=== PATIENT | male | born 1945 | race Caucasian/White ===

== ENCOUNTER 2016-09-24 09:35 | Emergency (ER) | payer OTHER, MEDICAID ==
[2016-09-24 09:47] VITALS: BP 100/74; PULSE 72; RESP 18; TEMP 97.5; O2SAT 94
[2016-09-24] MEDS ORDERED: TDAP ADULT 0.5 ML INJ (BOOSTRIX) IM ONE (09:58)
[2016-09-24] MEDS ORDERED: LET GEL TOPICAL 1 EA SYR TP ONE (09:58)
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
== END 2016-09-24 10:45 | disposition home or self-care (01) ==
DX: S80.811A Abrasion, right lower leg, initial encounter (principal); Z23 Encounter for immunization; Z87.891 Personal history of nicotine dependence; V18.0XXA Pedal cycle driver injured in noncollision transport accident in nontraffic accident, initial encounter; Y99.8 Other external cause status; Y93.55 Activity, bike riding

== ENCOUNTER → 2016-10-17 | Outpatient (CLI) | payer OTHER, MEDICAID | LOC: FIMAGING 16:24 | PROVIDERS: ATTEND Physician Assistant | DX: M79.604 Pain in right leg (principal) ==

== ENCOUNTER 2016-11-10 18:08 | Emergency (ER) | payer OTHER, MEDICAID ==
[2016-11-10 18:31] VITALS: BP 126/86; PULSE 67; RESP 16; TEMP 97.9; O2SAT 94
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
[2016-11-10] MEDS ORDERED: HYDROCOD/APAP 5/325 PREPACK#6 BTL TAKEHOME ONE (19:59)
== END 2016-11-10 20:20 | disposition home or self-care (01) ==
LOC: EDUNIT#
DX: S83.91XA Sprain of unspecified site of right knee, initial encounter (principal); S20.211A Contusion of right front wall of thorax, initial encounter; Z87.891 Personal history of nicotine dependence; V13.4XXA Pedal cycle driver injured in collision with car, pick-up truck or van in traffic accident, initial encounter; Y92.410 Unspecified street and highway as the place of occurrence of the external cause
CPT/HCPCS: L1830

== ENCOUNTER → 2016-11-27 | Outpatient (CLI) | payer OTHER, MEDICAID | LOC: FIMAGING 09:15 | PROVIDERS: ATTEND Physician Assistant | DX: S83.411A Sprain of medial collateral ligament of right knee, initial encounter (principal); S72.424A Nondisplaced fracture of lateral condyle of right femur, initial encounter for closed fracture; S83.241A Other tear of medial meniscus, current injury, right knee, initial encounter; M23.41 Loose body in knee, right knee ==

== ENCOUNTER → 2016-12-19 | Outpatient (CLI) | payer OTHER, MEDICAID | LOC: BRMIMAGING 14:40 | PROVIDERS: ATTEND Family Medicine | DX: Z13.820 Encounter for screening for osteoporosis (principal); M48.54XA Collapsed vertebra, not elsewhere classified, thoracic region, initial encounter for fracture ==

== ENCOUNTER 2017-04-19 06:25 | Emergency (ER) | payer OTHER, MEDICAID ==
[2017-04-19] MEDS ORDERED: NS 1,000 ML IV ONE (06:34)
[2017-04-19] MEDS ORDERED: HYDROmorphONE/DILAUDID 1 MG/ML INJ IVP ONE ×2 (06:34→06:55)
[2017-04-19] MEDS ORDERED: ONDANSETRON 4 MG/2 ML VIAL IVP ONE ×2 (06:34→06:55)
--- NOTE | 2017-04-19 06:37 | EDPHY ---
H & P Stated Complaint: RUQ abd pain Source: Patient - Personal History Current Tetanus Diphtheria and Acellular Pertussis (TDAP): Yes Tetanus Vaccine Date: 09/2016 - Medical/Surgical History Hx Asthma: No Hx Chronic Respiratory Disease: No Hx Diabetes: No Hx Cardiac Disease: No Hx Renal Disease: No Hx Cirrhosis: No Hx Alcoholism: No Hx HIV/AIDS: No Hx Splenectomy or Spleen Trauma: No Other PMH: epilepsy - Social History Smoking Status: Light smoker HPI/ROS: HPI CHIEF COMPLAINT: Upon the right upper quadrant HISTORY OF PRESENT ILLNESS: This patient is a 71-year-old male, he presents emergency room at upper quadrant pain pre states this woke him from sleep approximately a couple hours ago with associated nausea. Describes sharp stabbing or severe 8/10 right upper quadrant abdominal pain does not radiate anywhere. He denies any pain or short of breath. Denies fever. He states from time to time he had pain in this area but never this severe. Denies diarrhea or vomiting. Denies pleuritic pain. Denies lower abdominal pain the pain is located in the right upper quadrant. Reproducible on exam. Past Medical History: Seizure disorder, GERD Past Surgical History: Denies a history of abdominal surgeries Social History: Denies daily use of drugs, alcohol, smoke occasional. Family History: Noncontributory ROS REVIEW OF SYSTEMS: A comprehensive 10 point review of systems is otherwise negative aside from elements mentioned in the history of present illness. Exam Constitutional appears well nontoxic triage nursing summary reviewed, vital signs reviewed, awake/alert. Eyes normal conjunctivae and sclera, EOMI, PERRLA. HENT normal inspection, atraumatic, moist mucus membranes, no epistaxis, neck supple/ no meningismus, no raccoon eyes. Respiratory clear to auscultation bilaterally, normal breath sounds, no respiratory distress, no wheezing. Cardiovascular rate normal, regular rhythm, no murmur, no edema, distal pulses normal. Gastrointestinal TTP focally in RUQ , no peritoneal signs no rebound, no guarding, normal bowel sounds, no distension, no pulsatile mass. Genitourinary no CVA tenderness. Musculoskeletal no midline vertebral tenderness, full range of motion, no calf swelling, no tenderness of extremities, no meningismus, good pulses, neurovascularly intact. Skin pink, warm, & dry, no rash, skin atraumatic. Neurologic awake, alert and oriented x 3, AAOx3, moves all 4 extremities equally, motor intact, sensory intact, CN II-XII intact, normal cerebellar, normal vision, normal speech. Psychiatric normal mood/affect. Heme/Lymph/Immune no lymphadenopathy. Differential diagnosis includes but is not limited to and in no particular order : Bowel obstruction, appendicitis, gallbladder disease, diverticulitis, colitis , enteritis, perforated viscus, gastritis, GERD, esophagitis, urinary tract infection, pyelonephritis, kidney stones Medical Decision Making: Plan for this in IV establishment IV levels comfort 1 g IV Dilaudid for pain control, IV Zofran for nausea 4 mg, check basic blood work and ultrasound of the right upper quadrant. Re-evaluation: 0636AM: Patient is signed over to Dr. Fco Chou at 7:00 a.m. shift change. Pending blood work ultrasound re-examination. (Sourav Richardson) Constitutional: Initial Vital Signs Temperature (C) 36.9 C 04/19/17 06:25 Heart Rate 71 04/19/17 06:25 Respiratory Rate 19 04/19/17 06:25 Blood Pressure 171/98 H 04/19/17 06:25 O2 Sat (%) 97 04/19/17 06:25 O2 Delivery Mode Room Air Allergies/Adverse Reactions: No Known Allergies Allergy (Unverified 04/19/17 06:24) Home Medications: Medication Instructions Recorded lamoTRIgine [LamICTAL XR] 500 mg PO DAILY 02/12/16 Hydrocodone/APAP 5/325 [[place] 1 each PO Q4-6PRN PRN #10 tab 11/10/16 5/325 (*)] Oxycodone HCl [Oxyir] 5 mg PO Q4-6PRN PRN #12 capsule 04/19/17 Medical Decision Making - Diagnostics Imaging Results: Imaging Impressions Abdomen Ultrasound 04/19/17 06:34 Impression: 1. Cholelithiasis with gallbladder sludge and adherent calculi versus polyps. Borderline gallbladder wall thickening. Findings suggest chronic cholecystitis without acute features. The study was performed as an emergency on-call case and discussed by telephone with Dr. Fco Chou at 7:30 AM hrs. The final interpretation is concordant with the original communication. Abdomen CT 04/19/17 07:56 Impression: 1. Borderline gallbladder wall thickening with nonradiopaque gallstone versus polyp. Correlation recommended with respect to possible underlying cholecystitis. 2. 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 3. Spinal stenosis at L4-L5 and L5-S1. Stable old compression superior endplate of T11. Previous DEXA scan revealed bone mineral density within range of normal. 4. Mild to moderate constipation. Findings discussed with Fco Chou M.D. at 9:10 hour, 04/19/2017. Ultrasound of the right upper quadrant shows gallstones. Normal wall thickness. Common bile duct is normal. No evidence for acute cholecystitis CT abdomen pelvis with IV contrast reviewed by me and discussed with Dr. Fortune shows gallstones only. He has some spinal stenosis. Otherwise pancreas appears normal no other acute intra-abdominal findings (Fco Chou) ED Course/Re-evaluation: I re-evaluated the patient 7:30 a.m.. Patient is much more comfortable. We reviewed the history and that he has had similar symptoms over the last several months gradually increasing. It does seem to be associated with eating and he is thought that this has been GERD but has been suspicious about his gallbladder. The exam shows the patient now to be quite much more comfortable with minimal right-sided abdominal pain. The patient and I discussed labs and the ultrasound. We agreed to do a IV contrast CT for complete evaluation. Re-evaluation again at 9:35 a.m.--patient is stable and pain-free. He and I discussed lab and imaging studies results. We discussed treatment plan including criteria for return importance of follow-up and further evaluation. He expresses understanding and agreement (Fco Chou) Differential Diagnosis: I suspect patient's symptoms are likely due to gallbladder disease. It may be a combination with GERD. Patient will follow up with surgeon (Fco Chou) - Data Points Laboratory Results: Laboratory Results 04/19/17 06:45 04/19/17 06:45 04/19/17 04/19/17 04/19/17 07:30 06:45 06:45 WBC RBC Hgb Hct MCV MCH MCHC RDW Plt Count MPV Neut % (Auto) Lymph % (Auto) [place] % (Auto) Eos % (Auto) Baso % (Auto) Nucleat RBC Rel Count Absolute Neuts (auto) Absolute Lymphs (auto) Absolute Monos (auto) Absolute Eos (auto) Absolute Basos (auto) Absolute Nucleated RBC Immature Gran % Immature Gran # PT 13.3 SEC SEC (12.0-15.0) INR 0.99 (0.83-1.16) APTT 32.1 SEC SEC (23.0-38.0) Sodium 144 mEq/L mEq/L (135-145) Potassium 4.4 mEq/L mEq/L (3.5-5.2) Chloride 106 mEq/L mEq/L (97-110) Carbon Dioxide 24 mEq/l mEq/l (22-31) Anion Gap 14 mEq/L mEq/L (8-16) BUN 24 mg/dL H mg/dL (7-23) Creatinine 1.4 mg/dL H mg/dL (0.7-1.3) Estimated GFR 50 Glucose 112 mg/dL H mg/dL (70-100) Calcium 9.4 mg/dL mg/dL (8.5-10.4) Total Bilirubin 0.2 mg/dL mg/dL (0.1-1.4) Conjugated Bilirubin 0.2 mg/dL mg/dL (0.0-0.5) Unconjugated Bilirubin 0.0 mg/dL mg/dL (0.0-1.1) AST 17 IU/L IU/L (17-59) ALT 28 IU/L IU/L (21-72) Alkaline Phosphatase 63 IU/L IU/L (38-126) Troponin I < 0.012 ng/mL ng/mL (0.000-0.034) Total Protein 6.8 g/dL g/dL (6.3-8.2) Albumin 4.2 g/dL g/dL (3.5-5.0) Lipase 231 IU/L IU/L (23-300) Urine Color YELLOW Urine Appearance CLEAR Urine pH 5.0 (5.0-7.5) Ur Specific [place] 1.020 (1.002-1.030) Urine Protein NEGATIVE (NEGATIVE) Urine Ketones NEGATIVE (NEGATIVE) Urine Blood 1+ H (NEGATIVE) Urine Nitrate NEGATIVE (NEGATIVE) Urine Bilirubin NEGATIVE (NEGATIVE) Urine Urobilinogen NEGATIVE EU EU (0.2-1.0) Ur Leukocyte Esterase NEGATIVE (NEGATIVE) Urine RBC 3-5 /hpf H /hpf (0-3) Urine WBC 1-3 /hpf /hpf (0-3) Ur Epithelial Cells TRACE /lpf /lpf (NONE-1+) Hyaline Casts 1-5 /lpf /lpf (0-1) Urine Mucus TRACE /lpf /lpf (NONE-1+) Urine Glucose NEGATIVE (NEGATIVE) 04/19/17 06:45 WBC 9.82 10^3/uL H 10^3/uL (3.80-9.50) RBC 4.75 10^6/uL 10^6/uL (4.40-6.38) Hgb 16.0 g/dL g/dL (13.7-17.5) Hct 46.4 % % (40.0-51.0) MCV 97.7 fL fL (81.5-99.8) MCH 33.7 pg pg (27.9-34.1) MCHC 34.5 g/dL g/dL (32.4-36.7) RDW 12.9 % % (11.5-15.2) Plt Count 223 10^3/uL 10^3/uL (150-400) MPV 9.8 fL fL (8.7-11.7) Neut % (Auto) 61.1 % % (39.3-74.2) Lymph % (Auto) 23.6 % % (15.0-45.0) Butler % (Auto) 12.6 % % (4.5-13.0) Eos % (Auto) 2.0 % % (0.6-7.6) Baso % (Auto) 0.4 % % (0.3-1.7) Nucleat RBC Rel Count 0.0 % % (0.0-0.2) Absolute Neuts (auto) 5.99 10^3/uL 10^3/uL (1.70-6.50) Absolute Lymphs (auto) 2.32 10^3/uL 10^3/uL (1.00-3.00) Absolute Monos (auto) 1.24 10^3/uL H 10^3/uL (0.30-0.80) Absolute Eos (auto) 0.20 10^3/uL 10^3/uL (0.03-0.40) Absolute Basos (auto) 0.04 10^3/uL 10^3/uL (0.02-0.10) Absolute Nucleated RBC 0.00 10^3/uL 10^3/uL (0-0.01) Immature Gran % 0.3 % % (0.0-1.1) Immature Gran # 0.03 10^3/uL 10^3/uL (0.00-0.10) PT INR APTT Sodium Potassium Chloride Carbon Dioxide Anion Gap BUN Creatinine Estimated GFR Glucose Calcium Total Bilirubin Conjugated Bilirubin Unconjugated Bilirubin AST ALT Alkaline Phosphatase Troponin I Total Protein Albumin Lipase Urine Color Urine Appearance Urine pH Ur Specific [place] Urine Protein Urine Ketones Urine Blood Urine Nitrate Urine Bilirubin Urine Urobilinogen Ur Leukocyte Esterase Urine RBC Urine WBC Ur Epithelial Cells Hyaline Casts Urine Mucus Urine Glucose Medications Given: Discontinued Medications Hydromorphone HCl (Dilaudid) 0.5 mg IVP EDNOW ONE Stop: 04/19/17 06:35 Last Admin: 04/19/17 06:50 Dose: 0.5 mg Sodium Chloride (Ns) 1,000 mls @ 0 mls/hr IV EDNOW ONE; Wide Open PRN Reason: Protocol Stop: 04/19/17 06:35 Last Admin: 04/19/17 06:50 Dose: 1,000 mls Ondansetron HCl (Zofran) 4 mg IVP EDNOW ONE Stop: 04/19/17 06:35 Last Admin: 04/19/17 06:50 Dose: 4 mg Departure - Departure Disposition: Home, Routine, Self-Care Clinical Impression: Abdominal pain Qualifiers: Abdominal location: right upper quadrant Qualified Code(s): R10.11 - Right upper quadrant pain Cholelithiasis Qualifiers: Cholelithiasis location: gallbladder Cholecystitis presence: without cholecystitis Biliary obstruction: without biliary obstruction Qualified Code(s) : K80.20 - Calculus of gallbladder without cholecystitis without obstruction Condition: Good Instructions: Gallstones (ED) Additional Instructions: Caution with eating fat or greasy foods. Oxycodone if needed for discomfort. Return for worsening symptoms. I will give you the name of surgeon in town for further evaluation of your gallbladder. Please call and make an appointment. Referrals: Patient,NotPresent [Unknown] - As per Instructions Sourav Amaya MD [Medical Doctor] - 2-3 days, call for appt. Prescriptions: Oxycodone HCl [Oxyir] 5 mg PO Q4-6PRN PRN #12 capsule PRN Reason: Pain, Moderate
[2017-04-19 06:54] VITALS: RESP 18
[2017-04-19 06:57] LABS: PLATELET COUNT 223 10^3/uL (150-400)
[2017-04-19 07:06] LABS: INR 0.99 (0.83-1.16); PROTIME(PATIENT) 13.3 SEC (12.0-15.0)
[2017-04-19] MEDS ORDERED: IOPAMIDOL (ISOVUE-300) 100 ML BTL ONE (08:12)
[2017-04-19 09:55] VITALS: BP 140/82; PULSE 58; TEMP 97.5; O2SAT 91
== END 2017-04-19 09:55 | disposition home or self-care (01) ==
LOC: EDUNIT#
DX: K80.20 Calculus of gallbladder without cholecystitis without obstruction (principal); F17.200 Nicotine dependence, unspecified, uncomplicated; E86.9 Volume depletion, unspecified
CPT/HCPCS: 74177; 76705; 96361; 96374; 96375; 99285; J1170; J2405; Q9967

== ENCOUNTER 2017-04-28 13:23 | Emergency (ER) | payer OTHER, MEDICAID ==
[2017-04-28 13:29] VITALS: RESP 17
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
[2017-04-28 15:40] VITALS: BP 129/76; PULSE 56; TEMP 98.1; O2SAT 94
== END 2017-04-28 15:40 | disposition home or self-care (01) ==
DX: M25.561 Pain in right knee (principal); F17.200 Nicotine dependence, unspecified, uncomplicated
CPT/HCPCS: 99283; L1830

== ENCOUNTER → 2017-07-18 | Outpatient (CLI) | payer OTHER, MEDICAID | LOC: BHFA 11:30 | PROVIDERS: ATTEND Internal Medicine Cardiovascular Disease | DX: R07.9 Chest pain, unspecified (principal) ==

== ENCOUNTER → 2017-08-03 | Outpatient (CLI) | payer OTHER, MEDICAID | LOC: BHFA 10:45 | PROVIDERS: ATTEND Internal Medicine Cardiovascular Disease | DX: R09.89 Other specified symptoms and signs involving the circulatory and respiratory systems (principal) ==

== ENCOUNTER → 2017-09-18 | Outpatient (CLI) | payer OTHER, MEDICAID | LOC: FIMAGING 16:09 | PROVIDERS: ATTEND Family Medicine | DX: Z13.6 Encounter for screening for cardiovascular disorders (principal); I70.0 Atherosclerosis of aorta; I70.8 Atherosclerosis of other arteries ==

== ENCOUNTER → 2017-09-24 | Outpatient (CLI) | payer OTHER, MEDICAID | LOC: FIMAGING 10:15 | PROVIDERS: ATTEND Physician Assistant | DX: S83.281A Other tear of lateral meniscus, current injury, right knee, initial encounter (principal); M23.41 Loose body in knee, right knee; S83.421A Sprain of lateral collateral ligament of right knee, initial encounter; S83.241A Other tear of medial meniscus, current injury, right knee, initial encounter ==

== ENCOUNTER 2017-09-27 09:11 | Emergency (ER) | payer OTHER, MEDICAID ==
[2017-09-27] MEDS ORDERED: NS 1,000 ML IV ONE (09:46)
[2017-09-27] MEDS ORDERED: ONDANSETRON 4 MG/2 ML VIAL IVP ONE (09:46)
[2017-09-27] MEDS ORDERED: fentaNYL 100 MCG/2 ML INJ IVP ONE (09:46)
--- NOTE | 2017-09-27 09:46 | EDPHY ---
H & P Stated Complaint: r abd pain post pizza/trying to schedule choly surgery Time Seen by Provider: 09/27/17 09:27 HPI/ROS: CHIEF COMPLAINT: Right upper quadrant pain and vomiting HISTORY OF PRESENT ILLNESS: The patient presents to the ED with right upper quadrant pain and vomiting. The patient reports he has a history of cholelithiasis. The patient denies fever. The patient was diagnosed with cholelithiasis in the emergency department several months ago. The patient did have a outpatient follow-up visit however has not yet had surgery. The patient denies any vomiting or diarrhea. The patient denies prior history of abdominal surgery. The patient does report a past medical history noteworthy for epilepsy. The patient has recently undergone a cardiac evaluation with a Holter monitor and carotid ultrasound. REVIEW OF SYSTEMS: A comprehensive 10 point review of systems is otherwise negative aside from elements mentioned in the history of present illness. Source: Patient Exam Limitations: No limitations - Personal History Current Tetanus Diphtheria and Acellular Pertussis (TDAP): Yes Tetanus Vaccine Date: 09/2016 - Medical/Surgical History Hx Asthma: No Hx Chronic Respiratory Disease: No Hx Diabetes: No Hx Cardiac Disease: No Hx Renal Disease: No Hx Cirrhosis: No Hx Alcoholism: No Hx HIV/AIDS: No Hx Splenectomy or Spleen Trauma: No Other PMH: epilepsy gall bladder issues - Social History Smoking Status: Former smoker - Physical Exam Exam: General Appearance: Thin male, no acute distress Eyes: Pupils equal and round no pallor or injection ENT, Mouth: Mucous membranes moist Respiratory: There are no retractions, lungs are clear to auscultation Cardiovascular: Regular rate and rhythm Gastrointestinal: Tenderness to palpation in the right upper quadrant, no peritoneal signs, normal bowel sounds Neurological: 5/5 strength all 4 extremities Skin: Warm and dry, no rashes Musculoskeletal: Neck is supple nontender Extremities: symmetrical, full range of motion Constitutional: Initial Vital Signs Temperature (C) 36.3 C 09/27/17 09:16 Heart Rate 51 L 09/27/17 09:16 Respiratory Rate 16 09/27/17 09:16 Blood Pressure 133/83 H 09/27/17 09:16 O2 Sat (%) 95 09/27/17 09:16 O2 Delivery Mode Room Air O2 (L/minute) 2 Allergies/Adverse Reactions: No Known Allergies Allergy (Verified 09/27/17 09:15) Home Medications: Medication Instructions Recorded lamoTRIgine [LamICTAL XR] 500 mg PO DAILY 02/12/16 oxyCODONE/APAP 5/325 [Percocet] 1 tab PO Q8 PRN #11 tab 04/28/17 Ondansetron Odt [Zofran Odt] 4 mg PO Q4PRN PRN #20 tab 09/27/17 Medical Decision Making ED Course/Re-evaluation: I reviewed the patient's past medical records. He does have chronic cholecystitis noted on ultrasound performed several months ago. Patient's laboratory studies are within normal limits. I re-evaluated the patient at 11: 00 a.m. and he is now pain free. The patient would prefer to be discharged home and follow up with Dr. Amaya his regular general surgeon. The patient will be discharged from the emergency department with customary aftercare instructions and return precautions. Differential Diagnosis: Differential diagnosis considered includes cholecystitis, cholelithiasis, pancreatitis, cholangitis - Data Points Laboratory Results: Laboratory Results 09/27/17 09:50 09/27/17 09:50 09/27/17 09/27/17 09:50 09:50 WBC 8.37 10^3/uL 10^3/uL (3.80-9.50) RBC 4.26 10^6/uL L 10^6/uL (4.40-6.38) Hgb 14.1 g/dL g/dL (13.7-17.5) Hct 41.7 % % (40.0-51.0) MCV 97.9 fL fL (81.5-99.8) MCH 33.1 pg pg (27.9-34.1) MCHC 33.8 g/dL g/dL (32.4-36.7) RDW 13.2 % % (11.5-15.2) Plt Count 206 10^3/uL 10^3/uL (150-400) MPV 10.0 fL fL (8.7-11.7) Neut % (Auto) 77.0 % H % (39.3-74.2) Lymph % (Auto) 13.5 % L % (15.0-45.0) [place] % (Auto) 7.8 % % (4.5-13.0) Eos % (Auto) 0.7 % % (0.6-7.6) Baso % (Auto) 0.4 % % (0.3-1.7) Nucleat RBC Rel Count 0.0 % % (0.0-0.2) Absolute Neuts (auto) 6.45 10^3/uL 10^3/uL (1.70-6.50) Absolute Lymphs (auto) 1.13 10^3/uL 10^3/uL (1.00-3.00) Absolute Monos (auto) 0.65 10^3/uL 10^3/uL (0.30-0.80) Absolute Eos (auto) 0.06 10^3/uL 10^3/uL (0.03-0.40) Absolute Basos (auto) 0.03 10^3/uL 10^3/uL (0.02-0.10) Absolute Nucleated RBC 0.00 10^3/uL 10^3/uL (0-0.01) Immature Gran % 0.6 % % (0.0-1.1) Immature Gran # 0.05 10^3/uL 10^3/uL (0.00-0.10) Sodium 145 mEq/L mEq/L (135-145) Potassium 4.1 mEq/L mEq/L (3.3-5.0) Chloride 106 mEq/L mEq/L (97-110) Carbon Dioxide 28 mEq/l mEq/l (22-31) Anion Gap 11 mEq/L mEq/L (8-16) BUN 23 mg/dL mg/dL (7-23) Creatinine 1.2 mg/dL mg/dL (0.7-1.3) Estimated GFR 60 Glucose 114 mg/dL H mg/dL (70-100) Calcium 9.3 mg/dL mg/dL (8.5-10.4) Total Bilirubin 0.4 mg/dL mg/dL (0.1-1.4) Conjugated Bilirubin 0.4 mg/dL mg/dL (0.0-0.5) Unconjugated Bilirubin 0.0 mg/dL mg/dL (0.0-1.1) AST 26 IU/L IU/L (17-59) ALT 37 IU/L IU/L (21-72) Alkaline Phosphatase 59 IU/L IU/L (38-126) Total Protein 6.7 g/dL g/dL (6.3-8.2) Albumin 4.0 g/dL g/dL (3.5-5.0) Lipase 156 IU/L IU/L (23-300) Medications Given: Discontinued Medications Fentanyl (Sublimaze) 100 mcg IVP EDNOW ONE Stop: 09/27/17 09:47 Last Admin: 09/27/17 10:06 Dose: 100 mcg Sodium Chloride (Ns) 1,000 mls @ 0 mls/hr IV EDNOW ONE; Wide Open PRN Reason: Protocol Stop: 09/27/17 09:47 Last Admin: 09/27/17 10:06 Dose: 1,000 mls Ondansetron HCl (Zofran) 4 mg IVP EDNOW ONE Stop: 09/27/17 09:47 Last Admin: 09/27/17 10:07 Dose: 4 mg Departure - Departure Disposition: Home, Routine, Self-Care Clinical Impression: Cholelithiasis Condition: Good Instructions: Gallstones (ED) Additional Instructions: 1. Please follow up with Dr. Amaya as scheduled. 2. Zofran as needed for nausea. 3. Return to the ED for severe pain, intractable vomiting or fever. This may be the sign of a more serious conditions such as a gallbladder infection. Referrals: Kimberley Simmons MD [Primary Care Provider] - As per Instructions Sourav Amaya MD [Medical Doctor] - As per Instructions
[2017-09-27 10:03] LABS: PLATELET COUNT 206 10^3/uL (150-400)
[2017-09-27 11:12] VITALS: BP 120/80
== END 2017-09-27 11:20 | disposition home or self-care (01) ==
DX: K80.20 Calculus of gallbladder without cholecystitis without obstruction (principal); E86.9 Volume depletion, unspecified; Z87.891 Personal history of nicotine dependence
CPT/HCPCS: 96361; 96374; 96375; 99284; J2405; J3010

== ENCOUNTER 2017-10-06 12:18 | Emergency (ER) | payer OTHER, MEDICAID ==
[2017-10-06 12:32] VITALS: BP 106/73
--- NOTE | 2017-10-06 12:32 | CPEKG ---
Heart Rate: 75 RR Interval: 800 P-R Interval: 192 QRSD Interval: 98 QT Interval: 388 QTC Interval: 434 P Diablo: 50 QRS Diablo: 47 T Wave Diablo: 49 EKG Severity - NORMAL ECG - EKG Impression: SINUS RHYTHM Electronically Signed By: Carmen Iniguez 07-Oct-2017 14:07:33
[2017-10-06] MEDS ORDERED: NS 1,000 ML IV ONE (12:51)
--- NOTE | 2017-10-06 12:52 | EDPHY ---
HPI/HX/ROS/PE/MDM Narrative: CHIEF COMPLAINT: Seizure HISTORY OF PRESENT ILLNESS: The patient is a 71 y/o male with a history of seizure presenting post-seizure. He take Lamictal for seizure and reports taking his most recent dose slightly late. In addition, he had alcohol last night and this morning, which he does not usually do. He reports the seizure was similar to all previous seizures. He denies headache, injury, fever, or any other associated symptoms. No fever, chills, chest pain, shortness of breath, palpitations, vomiting, diarrhea, urinary complaints, headache, lightheadedness. REVIEW OF SYSTEMS: Aside from elements discussed in the HPI, a comprehensive 10-point review of systems was reviewed and is negative. PAST MEDICAL HISTORY: Seizures, gallbladder attack SOCIAL HISTORY: Has home health care 3 times a week, lives in [place], infrequent alcohol use VITAL SIGNS: Reviewed by me GENERAL: Well-developed, well-nourished, resting comfortably in no respiratory distress. HEENT: Atraumatic. Eyes: No icterus, no injection. Mouth: moist mucous membranes. No erythema or lesions. Neck: supple with no adenopathy. Nose: some superficial scratches. LUNGS: Clear to auscultation bilaterally, no wheezes, rhonchi or rales. CARDIAC: Regular rate and rhythm, no rubs, murmurs or gallops. ABDOMEN: Soft, nontender, nondistended, bowel sounds normal. BACK: No CVA tenderness. EXTREMITIES: No trauma. No edema. Range of motion is normal throughout. NEURO: Alert and oriented, motor strength 5/5 in all major muscle groups. Sensation intact to light touch. Conversant, oriented x3. SKIN: Warm and dry, no rash. PSYCHIATRIC: Normal mentation, no agitation. ED Course: The patient presents post-seizure. He has a known seizure disorder. He reports taking his Lamictal late this morning and consuming a beer over last night and this morning. Plan for basic labs including alcohol level, EKG, and fluids. The patient has decided to leave against medical advice. Patient understands that his evaluation is not fully complete. He understands that he runs the risk of having recurrent seizure. He reports that he would like to leave. He does have medical decision-making capacity. AMA form was signed. MDM: Differential diagnosis of the patient's seizure was considered including but not limited to electrolyte abnormality, alcohol withdrawal, medication noncompliance, head injury, meningitis, encephalitis, and breakthrough seizure. - Data Points Laboratory Results: Laboratory Results 10/06/17 12:30 10/06/17 12:30 General Time Seen by Provider: 10/06/17 12:41 Initial Vital Signs: Initial Vital Signs Temperature (C) 36.6 C 10/06/17 12:18 Heart Rate 82 10/06/17 12:18 Respiratory Rate 18 10/06/17 12:18 Blood Pressure 106/73 10/06/17 12:18 O2 Sat (%) 91 L 10/06/17 12:18 O2 Delivery Mode Room Air Allergies/Adverse Reactions: No Known Allergies Allergy (Verified 10/06/17 12:29) Home Medications: Medication Instructions Recorded lamoTRIgine [LamICTAL XR] 500 mg PO DAILY 02/12/16 Departure - Departure Disposition: Against Medical Advice Clinical Impression: Seizure Condition: Fair Instructions: Recurrent Seizures in Adults (ED) Additional Instructions: 1. You are leaving against medical advice. 2. Please continue your lamictal as directed. 3. Please return if you would like care. Referrals: Patient,NotPresent [Unknown] - As per Instructions Kimberley Simmons MD [Primary Care Provider] - As per Instructions Report Scribed for: Carmen Iniguez Report Scribed by: Loraine Maynard Date of Report: 10/06/17 Time of Report: 15:49 Physician Review and Approval Statement: Portions of this note were transcribed by a medical geneticist. I personally performed a history, physical exam, medical decision making, and confirmed accuracy of information the transcribed note.
[2017-10-06 13:01] LABS: PLATELET COUNT 237 10^3/uL (150-400)
== END 2017-10-06 13:15 | disposition left against medical advice (07) ==
LOC: EDUNIT#
DX: G40.909 Epilepsy, unspecified, not intractable, without status epilepticus (principal)
CPT/HCPCS: G0480

== ENCOUNTER 2017-11-22 10:38 | Emergency (ER) | payer OTHER, MEDICAID ==
--- NOTE | 2017-11-22 11:11 | EDPHY ---
H & P Stated Complaint: GALLBLADDER ISSUES Time Seen by Provider: 11/22/17 11:11 - Personal History Current Tetanus Diphtheria and Acellular Pertussis (TDAP): Yes Tetanus Vaccine Date: 09/2016 - Medical/Surgical History Hx Asthma: No Hx Chronic Respiratory Disease: No Hx Diabetes: No Hx Cardiac Disease: No Hx Renal Disease: No Hx Cirrhosis: No Hx Alcoholism: No Hx HIV/AIDS: No Hx Splenectomy or Spleen Trauma: No Other PMH: epilepsy gall bladder issues - Social History Smoking Status: Former smoker Constitutional: Initial Vital Signs Temperature (C) 36.6 C 11/22/17 10:42 Heart Rate 62 11/22/17 10:42 Respiratory Rate 18 11/22/17 10:42 Blood Pressure 122/79 H 11/22/17 10:42 O2 Sat (%) 95 11/22/17 10:42 O2 Delivery Mode Room Air Allergies/Adverse Reactions: No Known Allergies Allergy (Verified 11/22/17 10:41) Home Medications: Medication Instructions Recorded lamoTRIgine [LamICTAL XR] 500 mg PO DAILY 02/12/16 Hydrocodone-Acetamin 5-300 mg 11/22/17 Medical Decision Making - Diagnostics Imaging Results: Imaging Impressions Abdomen Ultrasound 11/22/17 11:21 Impression: 1. Gallbladder mass measuring 3.1 x 2.5 x 1.2 cm suspicious for gallbladder carcinoma, versus much less likely adherent tumefactive sludge. Recommend surgery consult. 2. No cholelithiasis or biliary ductal dilation. 3. Pancreas obscured by bowel gas. Findings and recommendations discussed with Emergency Department physician, Ismael Mitchell MD, at 1224 hour, 11/22/2017. Final report concurs with initial preliminary interpretation. Imaging: Discussed imaging studies w/ fisher scallop Radiologist, I viewed and interpreted images myself ED Course/Re-evaluation: CHIEF COMPLAINT: Right upper abdomen pain HISTORY OF PRESENT ILLNESS: The patient is a 72 y/o male with a history of gallstones complaining of right upper abdominal pain. In June, he was scheduled to have a cholecystectomy, but was unable to properly schedule the surgery properly with Dr. Amaya, general surgery. This morning he had acute abdominal pain, which is abnormal as he normally has right abdominal pain after eating. Denies chest pain, shortness of breath, urinary or bowel complaints, numbness, paresthesias, fever. REVIEW OF SYSTEMS: A 10 point review of systems was performed and is negative with the exception of the elements mentioned in the history of present illness. PHYSICAL EXAM: HR, BP, O2 Sat, RR. Temp noted General Appearance: Alert, well hydrated, appropriate, and non-toxic appearing. Head: Atraumatic without scalp tenderness or obvious injury Eyes: Pupils equal, round, reactive to light and accommodation, EOMI, no trauma , no injection. Ears: Clear bilaterally, no perforation, normal landmarks Nose: Atraumatic, no rhinorrhea, clear. Throat: There is no erythema or exudates, no lesions, normal tonsils, mucus membranes moist. Neck: Supple, 2+ carotid upstroke, nontender, no lymphadenopathy. Respiratory: No retractions, no distress, no wheezes, and no accessory muscle use. Lungs are clear to auscultation bilaterally. Cardiovascular: Regular rate and rhythm, no murmurs, rubs, or gallops. Bilateral carotid, radial, dorsalis pedis, and posterior tibial pulses intact. Good capillary refill all extremities. Gastrointestinal: Right upper quadrant tenderness to palpation. Abdomen is soft , non-distended, no masses, no rebound, no guarding, no peritoneal signs. Musculoskeletal: Normal active ROM of all extremities, atraumatic. Neurological: Alert, appropriate, and interactive. The patient has normal DTRs and non-focal cranial nerves, motor, sensory, and cerebellar exam. Skin: No rashes, good turgor, no nodules on palpation. Past medical history: Epilepsy, gallstones Past surgical history: Denies Family history: Denies Social history: Lives in [place], single, retired DIAGNOSTICS/PROCEDURES/CRITICAL CARE TIME: Abdominal US: Gallbladder mass, no gallstones. DIFFERENTIAL DIAGNOSIS: The differential diagnosis for the patient's abdominal pain included but was not limited to gallbladder mass, appendicitis, cholecystitis, hernias, testicular torsion, gastritis, and urinary tract infection. MEDICAL DECISION MAKING: The patient is a 72 y/o male with a history of gallstones presenting with right upper abdominal pain. On exam he has mild right upper quadrant tenderness to palpation. Labs and abdominal US ordered; 1L IV NS and 0.5mg IV Dilaudid administered. 1120: I spoke with case management regarding this patient. 1222: I spoke with Dr. Waldrop, radiologist, regarding patient's abdominal US. There is a gallbladder mass and no gallstones. The patient has no lab abnormalities and will need to follow up as an outpatient with general surgery. 1307: I consulted with Dr. Amaya, general surgeon, regarding this patient. Dr. Archibald, general surgeon, will follow up with this patient in his office. 1309: Reassessed patient and discussed imaging findings. I have advised him to follow up as an outpatient with Dr. Archibald. He is requesting the name of 3 extra general surgeons. Return precautions provided; patient is comfortable with this plan. - Data Points Laboratory Results: Laboratory Results 11/22/17 11:39 11/22/17 11:39 11/22/17 11/22/17 11:39 11:39 WBC 7.64 10^3/uL 10^3/uL (3.80-9.50) RBC 4.41 10^6/uL 10^6/uL (4.40-6.38) Hgb 14.6 g/dL g/dL (13.7-17.5) Hct 43.0 % % (40.0-51.0) MCV 97.5 fL fL (81.5-99.8) MCH 33.1 pg pg (27.9-34.1) MCHC 34.0 g/dL g/dL (32.4-36.7) RDW 13.0 % % (11.5-15.2) Plt Count 215 10^3/uL 10^3/uL (150-400) MPV 9.9 fL fL (8.7-11.7) Neut % (Auto) 59.2 % % (39.3-74.2) Lymph % (Auto) 25.7 % % (15.0-45.0) [place] % (Auto) 11.9 % % (4.5-13.0) Eos % (Auto) 2.4 % % (0.6-7.6) Baso % (Auto) 0.4 % % (0.3-1.7) Nucleat RBC Rel Count 0.0 % % (0.0-0.2) Absolute Neuts (auto) 4.53 10^3/uL 10^3/uL (1.70-6.50) Absolute Lymphs (auto) 1.96 10^3/uL 10^3/uL (1.00-3.00) Absolute Monos (auto) 0.91 10^3/uL H 10^3/uL (0.30-0.80) Absolute Eos (auto) 0.18 10^3/uL 10^3/uL (0.03-0.40) Absolute Basos (auto) 0.03 10^3/uL 10^3/uL (0.02-0.10) Absolute Nucleated RBC 0.00 10^3/uL 10^3/uL (0-0.01) Immature Gran % 0.4 % % (0.0-1.1) Immature Gran # 0.03 10^3/uL 10^3/uL (0.00-0.10) Sodium 141 mEq/L mEq/L (135-145) Potassium 4.1 mEq/L mEq/L (3.3-5.0) Chloride 107 mEq/L mEq/L (97-110) Carbon Dioxide 26 mEq/l mEq/l (22-31) Anion Gap 8 mEq/L mEq/L (8-16) BUN 20 mg/dL mg/dL (7-23) Creatinine 1.1 mg/dL mg/dL (0.7-1.3) Estimated GFR > 60 Glucose 92 mg/dL mg/dL (70-100) Calcium 9.1 mg/dL mg/dL (8.5-10.4) Total Bilirubin 0.3 mg/dL mg/dL (0.1-1.4) Conjugated Bilirubin 0.1 mg/dL mg/dL (0.0-0.5) Unconjugated Bilirubin 0.2 mg/dL mg/dL (0.0-1.1) AST 20 IU/L IU/L (17-59) ALT 21 IU/L IU/L (21-72) Alkaline Phosphatase 53 IU/L IU/L (38-126) Total Protein 6.3 g/dL g/dL (6.3-8.2) Albumin 3.7 g/dL g/dL (3.5-5.0) Lipase 130 IU/L IU/L (23-300) Medications Given: Discontinued Medications Hydromorphone HCl (Dilaudid) 0.5 mg IVP EDNOW ONE Stop: 11/22/17 11:21 Last Admin: 11/22/17 11:40 Dose: 0.5 mg Sodium Chloride (Ns) 1,000 mls @ 0 mls/hr IV EDNOW ONE; Wide Open PRN Reason: Protocol Stop: 11/22/17 11:21 Last Admin: 11/22/17 11:41 Dose: 1,000 mls Departure - Departure Disposition: Home, Routine, Self-Care Clinical Impression: Gallbladder mass Condition: Good Instructions: Cholecystitis (ED) Additional Instructions: 1. Follow up with Dr. Archibald, general surgeon, regarding the gallbladder mass. 2. Return to the Emergency Department for fever, chest pain, shortness of breath , increasing pain or other worsening of condition. Referrals: Kimberley Simmons MD [Primary Care Provider] - As per Instructions Chepe Archibald MD [Medical Doctor] - As per Instructions Sourav Amaya MD [Medical Doctor] - As per Instructions Tristian Farley MD [Medical Doctor] - As per Instructions Saul Hilton MD [Medical Doctor] - As per Instructions Report Scribed for: Ismael Mitchell Report Scribed by: Aileen Tenorio Date of Report: 11/22/17 Time of Report: 11:12
[2017-11-22] MEDS ORDERED: HYDROmorphONE/DILAUDID 2 MG/ML INJ IVP ONE (11:20)
[2017-11-22] MEDS ORDERED: NS 1,000 ML IV ONE (11:20)
[2017-11-22 11:48] LABS: PLATELET COUNT 215 10^3/uL (150-400)
[2017-11-22 13:52] VITALS: BP 115/70
== END 2017-11-22 13:51 | disposition home or self-care (01) ==
DX: K82.9 Disease of gallbladder, unspecified (principal); E86.9 Volume depletion, unspecified; Z87.891 Personal history of nicotine dependence
CPT/HCPCS: 76705; 96361; 96374; 99284; J1170

== ENCOUNTER 2017-12-12 10:43 | Observation (INO) | payer OTHER, MEDICAID ==
[2017-12-12 11:36] LABS: PLATELET COUNT 217 10^3/uL (150-400)
[2017-12-12] MEDS ORDERED: ONDANSETRON 4 MG/2 ML VIAL ONE (11:54)
[2017-12-12] MEDS ORDERED: ONDANSETRON 4 MG/2 ML VIAL IVP ONE (11:57)
--- NOTE | 2017-12-12 12:05 | EDPHY ---
General Time Seen by Provider: 12/12/17 11:58 Narrative: CHIEF COMPLAINT: "My gallbladder" HISTORY OF PRESENT ILLNESS: Patient presents with complaints of "my gallbladder hurts."Reports ongoing workup for his gallbladder, with surgery reportedly scheduled to be this Monday with Dr. Hilton. He has no fever chills. He developed increasing, severe abdominal pain over night. It is right upper quadrant into the epigastrium. No constipation or diarrhea. He feels this is the same pain he has had in the past and is not feels related to anything else the abdomen. He states that he just cannot take the pain at home. No other associated complaints or modifying factors. REVIEW OF SYSTEMS: 10 systems were reviewed and negative with the exception of the elements mentioned in the history of present illness. PCP: Dr. Simmons SPECIALISTS: Dr. Hilton PAST MEDICAL HISTORY: Gallbladder mass, epilepsy PAST SURGICAL HISTORY: No previous abdominal surgeries SOCIAL HISTORY: Nonsmoker. Lives independently. FAMILY HISTORY: Noncontributory EXAMINATION: General Appearance: Alert, no distress Head: normocephalic, atraumatic Eyes: Pupils equal and round, no conjunctival pallor or injection ENT, Mouth: Mucous membranes moist Neck: Normal inspection, supple, non-tender Respiratory: Lungs are clear to auscultation Cardiovascular: Regular rate and rhythm Gastrointestinal: Abdomen is soft and nondistended. There is tenderness of the right upper quadrant. No guarding. No tympany rigidity. Bowel sounds are present all 4 quadrants. Back: non-tender, no bony abnormalities Neurological: A&O, nonfocal, normal gait Skin: Warm and dry, no rash Extremities: Nontender, no pedal edema Psychiatric: Mood and affect normal DIFFERENTIAL DIAGNOSES: Including but not limited to cholecystitis, cholelithiasis, cholangiocarcinoma, biliary dyskinesia, biliary colic MDM: 12:05 p.m. Abdominal pain right upper quadrant the patient feels is directly related to his gallbladder, for which she has scheduled surgery this Monday. Laboratory studies were ordered prior to my examination and are within normal limits. I have reviewed the patient's recent history and imaging. I will consult his surgeon. 12:15 p.m. Case discussed with general surgeon Dr. Hilton. He says that he is happy to admit the patient is service and plan for cholecystectomy later today or in the morning. Patient is admitted stable condition. No further imaging ordered. Vital signs are within normal limits. Pain medication has been administered here. Admitted stable condition SUPERVISION: This patient was independently evaluated without direct involvement of or examination by the attending physician. CONSULTATION: Noncontributory - History Smoking Status: Current some day smoker - Objective Vital Signs: Initial Vital Signs Temperature (C) 97.7 F 12/12/17 10:48 Heart Rate 67 12/12/17 10:48 Respiratory Rate 17 12/12/17 10:48 Blood Pressure 117/73 12/12/17 10:48 O2 Sat (%) 95 12/12/17 10:48 O2 Delivery Mode Nasal Cannula O2 (L/minute) 2 Allergies/Adverse Reactions: No Known Allergies Allergy (Verified 12/12/17 10:47) Home Medications: Medication Instructions Recorded Acetaminophen [Tylenol 325mg (*)] 325 mg PO DAILY 12/12/17 Atorvastatin Calcium [Lipitor 20 20 mg PO DAILY@72912/12/17 mg (*)] lamoTRIgine [LamICTAL 100 MG (*)] 100 mg PO DAILY@72912/12/17 lamoTRIgine [LamICTAL XR] 300 mg PO DAILY@72912/12/17 Laboratory Results: Laboratory Results 12/12/17 11:10 12/12/17 11:10 12/12/17 12/12/17 11:10 11:10 WBC 7.99 10^3/uL 10^3/uL (3.80-9.50) RBC 4.44 10^6/uL 10^6/uL (4.40-6.38) Hgb 14.8 g/dL g/dL (13.7-17.5) Hct 43.5 % % (40.0-51.0) MCV 98.0 fL fL (81.5-99.8) MCH 33.3 pg pg (27.9-34.1) MCHC 34.0 g/dL g/dL (32.4-36.7) RDW 12.8 % % (11.5-15.2) Plt Count 217 10^3/uL 10^3/uL (150-400) MPV 10.1 fL fL (8.7-11.7) Neut % (Auto) 60.4 % % (39.3-74.2) Lymph % (Auto) 24.7 % % (15.0-45.0) [place] % (Auto) 11.6 % % (4.5-13.0) Eos % (Auto) 2.5 % % (0.6-7.6) Baso % (Auto) 0.5 % % (0.3-1.7) Nucleat RBC Rel Count 0.0 % % (0.0-0.2) Absolute Neuts (auto) 4.83 10^3/uL 10^3/uL (1.70-6.50) Absolute Lymphs (auto) 1.97 10^3/uL 10^3/uL (1.00-3.00) Absolute Monos (auto) 0.93 10^3/uL H 10^3/uL (0.30-0.80) Absolute Eos (auto) 0.20 10^3/uL 10^3/uL (0.03-0.40) Absolute Basos (auto) 0.04 10^3/uL 10^3/uL (0.02-0.10) Absolute Nucleated RBC 0.00 10^3/uL 10^3/uL (0-0.01) Immature Gran % 0.3 % % (0.0-1.1) Immature Gran # 0.02 10^3/uL 10^3/uL (0.00-0.10) Sodium 139 mEq/L mEq/L (135-145) Potassium 4.4 mEq/L mEq/L (3.3-5.0) Chloride 109 mEq/L mEq/L (97-110) Carbon Dioxide 23 mEq/l mEq/l (22-31) Anion Gap 7 mEq/L L mEq/L (8-16) BUN 25 mg/dL H mg/dL (7-23) Creatinine 1.0 mg/dL mg/dL (0.7-1.3) Estimated GFR > 60 Glucose 107 mg/dL H mg/dL (70-100) Calcium 9.5 mg/dL mg/dL (8.5-10.4) Total Bilirubin 0.2 mg/dL mg/dL (0.1-1.4) Conjugated Bilirubin 0.1 mg/dL mg/dL (0.0-0.5) Unconjugated Bilirubin 0.1 mg/dL mg/dL (0.0-1.1) AST 23 IU/L IU/L (17-59) ALT 26 IU/L IU/L (21-72) Alkaline Phosphatase 56 IU/L IU/L (38-126) Total Protein 6.6 g/dL g/dL (6.3-8.2) Albumin 3.9 g/dL g/dL (3.5-5.0) Lipase 177 IU/L IU/L (23-300) Medications Given: Hydromorphone HCl (Dilaudid) 0.2 - 0.4 mg IVP Q1 PRN PRN Reason: Pain, Severe Unable to Take PO Stop: 12/22/17 13:58 Last Admin: 12/12/17 14:57 Dose: 0.4 mg Lactated Ringer's (Lr) 1,000 mls @ 75 mls/hr IV CONT CIARA Stop: 06/10/18 13:59 Last Admin: 12/12/17 15:01 Dose: 1,000 mls Discontinued Medications Morphine Sulfate (Morphine) 4 mg IVP EDNOW ONE Stop: 12/12/17 11:58 Last Admin: 12/12/17 11:59 Dose: 4 mg Ondansetron HCl (Zofran) 4 mg IVP EDNOW ONE Stop: 12/12/17 11:58 Last Admin: 12/12/17 11:59 Dose: 4 mg Departure - Departure Disposition: [facility] Inpatient Acute Clinical Impression: Mass of gallbladder Abdominal pain Qualifiers: Abdominal location: right upper quadrant Qualified Code(s): R10.11 - Right upper quadrant pain Condition: Good
[2017-12-12] MEDS ORDERED: ONDANSETRON 4 MG/2 ML VIAL IVP PRN ×3 (13:59→19:37)
[2017-12-12] MEDS ORDERED: HYDROmorphONE/DILAUDID 1 MG/ML INJ IVP PRN ×3 (13:59→19:37)
[2017-12-12] MEDS ORDERED: cefOXitin SODIUM 2 GM in NS 100 ML IV ONE ×2 (13:59→19:45)
[2017-12-12] MEDS ORDERED: LR 1,000 ML IV SCH (14:00)
[2017-12-12] MEDS: HYDROmorphone HCL 0.5 MG/0.5 ML SYR IVP PRN ×4 (14:57→23:49)
[2017-12-12] MEDS ORDERED: BUPIVACAINE 0.5% 30 ML SDV ONE (16:45)
[2017-12-12] MEDS ORDERED: HEPARIN 1000 UNIT/1 ML MDV ONE ×2 (16:45→16:48)
[2017-12-12] MEDS ORDERED: ceFAZolin 1 GM/5 ML SYR ONE (16:46)
[2017-12-12] MEDS ORDERED: MIDAZOLAM 2 MG/2 ML VIAL IVP ONE ×2 (18:26→19:45)
[2017-12-12] MEDS ORDERED: ALBUTEROL 3 ML DEYVIAL IH PRN (18:26)
[2017-12-12] MEDS ORDERED: ACETAMINOPHEN 500 MG TAB PO PRN (18:26)
[2017-12-12] MEDS ORDERED: NALOXONE HCL 0.4 MG/ML INJ IVP PRN (18:26)
[2017-12-12] MEDS ORDERED: LR 500 ML IV PRN (18:26)
[2017-12-12] MEDS ORDERED: fentaNYL 100 MCG/2 ML INJ IVP PRN (18:26)
[2017-12-12] MEDS ORDERED: DEXAMETHASONE 4 MG/ML VIAL IVP PRN (18:26)
[2017-12-12] MEDS ORDERED: HYDROCODONE/APAP 5/325 TAB PO PRN (18:26)
[2017-12-12] MEDS ORDERED: oxyCODONE IR 5 MG TAB PO PRN (18:26)
--- NOTE | 2017-12-12 18:28 | PDANEPAE ---
ANE History of Present Illness here for lap kat SILVIA Past Medical History - Cardiovascular History Hx Hypertension: No Hx Arrhythmias: No Hx Chest Pain: No Hx Coronary Artery / Peripheral Vascular Disease: Yes Hx CHF / Valvular Disease: No Hx Palpitations: No Cardiovascular History Comment: Pt states has been told has mild CAD. - Pulmonary History Hx COPD: No Hx Asthma/Reactive Airway Disease: No Hx Recent Upper Respiratory Infection: No Hx Oxygen in Use at Home: No Hx Sleep Apnea: No Sleep Apnea Screening Result - Last Documented: Negative - Neurologic History Hx Cerebrovascular Accident: No Hx Seizures: Yes Hx Dementia: No Neurologic History Comment: seizure disorder - Last seizure in spring 2017. - Endocrine History Hx Diabetes: No - Renal History Hx Renal Disorders: Yes Renal History Comment: chronic renal insufficiency - Liver History Hx Hepatic Disorders: No - Neurological & Psychiatric Hx Hx Neurological and Psychiatric Disorders: No Neurological / Psychiatric History Comment: seizure disorder - Cancer History Hx Cancer: No Cancer History Comment: Pt states he had a growth taken off ramirez and one off his cheek. States results benign. - Congenital Disorder History Hx Congenital Disorders: No - GI History Hx Gastrointestinal Disorders: Yes Gastrointestinal History Comment: GERD - Other Health History Other Health History: missing tooth upper. wears glasses - Chronic Pain History Chronic Pain: No - Surgical History Prior Surgeries: Hip resurfacing 06/2009 ANE Review of Systems Review of systems is: negative Review of Systems: - Exercise capacity Exercise capacity: >=4 METS ANE Patient History - Allergies Allergies/Adverse Reactions: No Known Allergies Allergy (Verified 12/12/17 10:47) - Home Medications Home Medications: Acetaminophen [Tylenol 325mg (*)] 325 mg PO DAILY 12/12/17 [Last Taken 12/12/17 08:30] Atorvastatin Calcium [Lipitor 20 mg (*)] 20 mg PO DAILY@72912/12/17 [Last Taken 12/12/17] lamoTRIgine [LamICTAL 100 MG (*)] 100 mg PO DAILY@72912/12/17 [Last Taken 02/18] lamoTRIgine [LamICTAL XR] 300 mg PO DAILY@72912/12/17 [Last Taken 12/12/17] - NPO status NPO Since - Liquids (Date): 12/12/17 NPO Since - Liquids (Time): 08:00 NPO Since - Solids (Date): 12/12/17 NPO Since - Solids (Time): 08:00 - Smoking Hx Smoking Status: Current some day smoker - Family Anes Hx Family Hx Anesthesia Complications: none ANE Labs/Vital Signs - Labs Result Diagrams: 12/12/17 11:10 12/12/17 11:10 - Vital Signs Vital Signs: reviewed preoperatively; see RN documention for details Blood Pressure: 119/79 Heart Rate: 58 Respiratory Rate: 16 O2 Sat (%): 96 Height: 172.72 cm Weight: 72.575 kg ANE Physical Exam - Airway Neck exam: FROM Mallampati Score: Class 1 - Pulmonary Pulmonary: no respiratory distress - Cardiovascular Cardiovascular: regular rate and rhythym - ASA Status ASA Status: II ANE Anesthesia Plan Anesthesia Plan: general endotracheal anesthesia
--- NOTE | 2017-12-12 18:34 | PDHPUP ---
History & Physical Update H&P update statement: This history and physical update is based on an assessment of the patient which was completed after admission or registration (within 24 hours), but prior to the surgery/procedure. H&P update: H&P reviewed & patient examined, changes noted (pt had scheduled sx on 12/15, came into ED 2/2 pain, adding on for lap kat today)
--- NOTE | 2017-12-12 19:28 | POSTOPPROG ---
Post Op Note Date of Operation: 12/12/17 Surgeon: Saul Hilton Disaster Recovery Manager: KRISTIAN Anesthesiologist: ANEESH Anesthesia: GET(General Endotracheal) Pre-op Diagnosis: CHOLETHIASIS AND GB MASS Post-op Diagnosis: SAME + HYDROPS Indication: PAIN Procedure: LAP SHERLY Findings: THICKENED GALLBLADDER WITH STONES, NO NODES, PATH PENDING Inf/Abcess present in the surg proc area at time of surgery?: Yes Depth: Organ Space EBL: Minimal Complications: 0 Specimen(s): GALLBLADDER
[2017-12-12] MEDS ORDERED: OXYCODONE/APAP 5/325 TAB PO PRN (19:37)
[2017-12-12] MEDS ORDERED: D5W 1/2 NS W/ 20 KCl/L 1,000 ML IV SCH (19:45)
--- NOTE | 2017-12-12 19:53 | POSTANESTH ---
Post Anesthetic Evaluation Cardiovascular Status: Normal, Stable Respiratory Status: Normal, Stable Level of Consciousness/Mental Status: Moderately Sleepy Pain Control: Adequate, Prn Tx Ordered Nausea/Vomiting Control: Adequate, Prn Tx Ordered Complications Possibly Related to Anesthesia: None Noted
[2017-12-12] MEDS: KETOROLAC 15 MG/1 ML SDV IVP SCH (23:49)
[2017-12-13] MEDS: cefOXitin SODIUM 1 GM in NS 50 ML IV SCH ×2 (01:01→05:51)
[2017-12-13] MEDS: KETOROLAC 15 MG/1 ML SDV IVP SCH (05:52)
[2017-12-13] MEDS ORDERED: Lamotrigine [Lamictal Xr] 300 MG PO SCH (07:30)
[2017-12-13] MEDS ORDERED: ATORVASTATIN CALCIUM 20 MG TAB PO SCH (07:30)
[2017-12-13] MEDS ORDERED: lamoTRIgine 100 MG TAB PO SCH ×2 (07:30→08:15)
[2017-12-13 07:36] VITALS: BP 90/53
[2017-12-13] MEDS ORDERED: ACETAMINOPHEN 325 MG TAB PO SCH (09:00)
--- NOTE | 2017-12-13 09:44 | SOAPPROG ---
SOAP Progress Note Assessment/Plan: Assessment: 72 y/o M s/p lap kat for cholelithiasis POD #1 Path pending S: Doing well overall. Pain controlled. Tolerating clears. Eager to go home. O: Alert Afebrile RRR No increased WOB Abdomen: soft, slightly distended, appropriately ttp, incisions cdi, hypoactive BS Plan: Advance to regular diet. Dispo home after breakfast. 12/13/17 09:42 Objective: Vital Signs Temp Pulse Resp BP Pulse Ox 36.8 C 68 16 90/53 L 95 12/13/17 07:33 12/13/17 09:12 12/13/17 07:33 12/13/17 07:33 12/13/17 09:12 12/12/17 12/13/17 12/14/17 05:59 05:59 05:59 Intake Total 1040 1080 Output Total 300 300 Balance 740 780 ICD10 Worksheet Patient Problems: Problems Problem Status Onset Abdominal pain Acute Mass of gallbladder Acute Chest pain Acute
--- NOTE | 2017-12-14 21:09 | GOP ---
DATE OF OPERATION: 12/12/2017 SURGEON: Saul Hilton MD POTASH FLAKER: MARKUS Amador. PREOPERATIVE DIAGNOSIS: Symptomatic cholelithiasis and cholecystitis. POSTOPERATIVE DIAGNOSIS: Symptomatic cholelithiasis and cholecystitis. PROCEDURE PERFORMED: Laparoscopic cholecystectomy. FINDINGS: Patient was found to have hydrops. Gallbladder was markedly inflamed, small ducts. DESCRIPTION OF PROCEDURE: The patient was taken to the operating room where he received a satisfacto ry general endotracheal anesthesia. He was placed in the supine position, prepped and draped in the usual sterile Fashion. Infraumbilical incision was made. A Veress needle was inserted. Pneumoperito neum was established. Trocar was introduced. Laparoscope introduced. Good visualization was obtain ed. 3 other trocars were placed in the upper abdomen under direct vision. The gallbladder was elevated u p. Adhesions were taken down. The entire gallbladder was exposed. The cystic triangle was carefull y dissected free. The cystic duct, cystic artery were dissected free and a clear view was obtained. Both structures were multiply hemoclipped and divided. Peritoneum of the gallbladder was incised. The gallbladder was dissected free in the bed and hepatic fossa and extracted through the upper midli ne port site. Hemostasis was assured. The wound was irrigated. Trocars were removed under direct v ision. Trocar sites were closed with 0 Vicryl for the fascia, 4-0 Monocryl subcuticular stitch for t he skin. All layers infiltrated with 0.5% Marcaine. Blood loss was negligible. There were no complications. SURGEON: Saul Hilton MD /[id number]/MODL
== END 2017-12-13 11:45 | disposition home or self-care (01) ==
LOC: F1N 13:36
PROVIDERS: ADMIT Surgery; ATTEND Surgery
PROC: 0FT44ZZ Resection of Gallbladder, Percutaneous Endoscopic Approach (ICD-10-PCS; principal; 2017-12-12 17:15)
DX: K80.12 Calculus of gallbladder with acute and chronic cholecystitis without obstruction (principal); F17.210 Nicotine dependence, cigarettes, uncomplicated
CPT/HCPCS: 47562; 88304; 88331; 96374; 96375; 96376; 99285; G0378; J0694; J1170; J1885; J2405

== ENCOUNTER 2017-12-23 08:28 | Emergency (ER) | payer OTHER, MEDICAID ==
--- NOTE | 2017-12-23 08:49 | EDPHY ---
H & P Stated Complaint: woke up feeling "foggy" hx of seizures in past Time Seen by Provider: 12/23/17 08:41 HPI/ROS: CHIEF COMPLAINT: "I may have had a seizure last night" HISTORY OF PRESENT ILLNESS: The patient presents to the believes he may have had a seizure last night. He reports that he feels slightly postictal today. The patient denies any tongue bite or incontinence. The patient took his regular 400 mg dose of Lamictal this morning. The patient denies any additional acute complaints such as fever, cough, congestion, history of fall, trauma, numbness, weakness, acute pain or other complaints. The patient is requesting to be watched in the emergency department for 1 hr. REVIEW OF SYSTEMS: A comprehensive 10 point review of systems is otherwise negative aside from elements mentioned in the history of present illness. Source: Patient Exam Limitations: No limitations - Personal History Current Tetanus Diphtheria and Acellular Pertussis (TDAP): Yes Tetanus Vaccine Date: 09/2016 - Medical/Surgical History Hx Asthma: No Hx Chronic Respiratory Disease: No Hx Diabetes: No Hx Cardiac Disease: No Hx Renal Disease: No Hx Cirrhosis: No Hx Alcoholism: No Hx HIV/AIDS: No Hx Splenectomy or Spleen Trauma: No Other PMH: epilepsy choly - Social History Smoking Status: Current some day smoker - Physical Exam Exam: General Appearance: Alert, no distress Head: Normocephalic atraumatic Eyes: Pupils equal and round no pallor or injection ENT, Mouth: Mucous membranes moist, no tongue bite Respiratory: There are no retractions, lungs are clear to auscultation Cardiovascular: Regular rate and rhythm Gastrointestinal: Abdomen is soft and nontender, no masses, bowel sounds, normal surgical incisions are clean dry and intact from recent cholecystectomy Neurological: A&O, normal motor function, normal sensory exam, normal cranial nerves Skin: Warm and dry, no rashes Musculoskeletal: Neck is supple nontender Extremities: symmetrical, full range of motion Psychiatric: Patient is oriented X 3, there is no agitation Constitutional: Initial Vital Signs Temperature (C) 36.3 C 12/23/17 08:34 Heart Rate 114 H 12/23/17 08:34 Respiratory Rate 18 12/23/17 08:34 Blood Pressure 131/87 H 12/23/17 08:34 O2 Sat (%) 94 12/23/17 08:34 O2 Delivery Mode Room Air Allergies/Adverse Reactions: No Known Allergies Allergy (Verified 12/23/17 08:33) Home Medications: Medication Instructions Recorded lamoTRIgine [LamICTAL XR] 300 mg PO DAILY@0730 12/12/17 Medical Decision Making ED Course/Re-evaluation: The patient presents to the ED concerned about the possibility of a seizure last night. The patient had no obvious stigmata of a recent seizure. The patient's metabolic panel was normal. He was observed in the emergency department for 1 hr without seizure activity. The patient has no complaints to suggest an additional emergency conditions such as infection or trauma. The patient is currently taking Lamictal. The patient will be discharged home with customary aftercare instructions and return precautions. Differential Diagnosis: Differential diagnosis considered includes seizure, dehydration, metabolic abnormality - Data Points Laboratory Results: Laboratory Results 12/23/17 08:56 12/23/17 08:56 12/23/17 12/23/17 08:56 08:56 WBC 10.02 10^3/uL H 10^3/uL (3.80-9.50) RBC 4.42 10^6/uL 10^6/uL (4.40-6.38) Hgb 14.7 g/dL g/dL (13.7-17.5) Hct 43.0 % % (40.0-51.0) MCV 97.3 fL fL (81.5-99.8) MCH 33.3 pg pg (27.9-34.1) MCHC 34.2 g/dL g/dL (32.4-36.7) RDW 12.7 % % (11.5-15.2) Plt Count 357 10^3/uL 10^3/uL (150-400) MPV 9.1 fL fL (8.7-11.7) Neut % (Auto) 57.4 % % (39.3-74.2) Lymph % (Auto) 31.2 % % (15.0-45.0) [place] % (Auto) 8.3 % % (4.5-13.0) Eos % (Auto) 2.1 % % (0.6-7.6) Baso % (Auto) 0.5 % % (0.3-1.7) Nucleat RBC Rel Count 0.0 % % (0.0-0.2) Absolute Neuts (auto) 5.75 10^3/uL 10^3/uL (1.70-6.50) Absolute Lymphs (auto) 3.13 10^3/uL H 10^3/uL (1.00-3.00) Absolute Monos (auto) 0.83 10^3/uL H 10^3/uL (0.30-0.80) Absolute Eos (auto) 0.21 10^3/uL 10^3/uL (0.03-0.40) Absolute Basos (auto) 0.05 10^3/uL 10^3/uL (0.02-0.10) Absolute Nucleated RBC 0.00 10^3/uL 10^3/uL (0-0.01) Immature Gran % 0.5 % % (0.0-1.1) Immature Gran # 0.05 10^3/uL 10^3/uL (0.00-0.10) Sodium 139 mEq/L mEq/L (135-145) Potassium 4.7 mEq/L mEq/L (3.3-5.0) Chloride 106 mEq/L mEq/L (97-110) Carbon Dioxide 23 mEq/l mEq/l (22-31) Anion Gap 10 mEq/L mEq/L (8-16) BUN 26 mg/dL H mg/dL (7-23) Creatinine 1.1 mg/dL mg/dL (0.7-1.3) Estimated GFR > 60 Glucose 126 mg/dL H mg/dL (70-100) Calcium 9.6 mg/dL mg/dL (8.5-10.4) Departure - Departure Disposition: Home, Routine, Self-Care Clinical Impression: Epilepsy Condition: Good Instructions: Epilepsy (ED) Additional Instructions: 1. No driving, dangerous activities such as riding a ski lift, swimming in a pool or other behavior that could put you or someone else at risk in the event of a recurrent seizure. You will need to be cleared by your regular physician to resume these activities. 2. Please return to the ED for recurrent seizure, headache, numbness, weakness, altered mental status or other concerns. 3. Please follow up with your primary care provider this week to schedule a follow-up appointment. Referrals: Kimberley Simmons MD [Primary Care Provider] - As per Instructions
[2017-12-23 09:07] LABS: PLATELET COUNT 357 10^3/uL (150-400)
[2017-12-23 09:39] VITALS: BP 98/64
== END 2017-12-23 09:40 | disposition home or self-care (01) ==
DX: G40.804 Other epilepsy, intractable, without status epilepticus (principal)

== ENCOUNTER 2018-01-16 05:21 | Emergency (ER) | payer OTHER, MEDICAID ==
--- NOTE | 2018-01-16 05:30 | EDPHY ---
H & P Stated Complaint: seizures Time Seen by Provider: 01/16/18 05:30 HPI/ROS: HPI CHIEF COMPLAINT: Seizure. HISTORY OF PRESENT ILLNESS: 72-year-old male, suffers from epilepsy and takes Lamictal for seizures, patient believes he has been compliant with his Lamictal. He however he states he may have missed a few doses. He presents emergency room stating that he thinks he may have recently had a seizure. He is requesting to be observed here in the emergency room for an hour to make sure he has no further seizures. Patient denies any focal medical complaints. Denies chest pain or shortness of breath. Denies being ill. Past Medical History: Seizure disorder, GERD Past Surgical History: No recent surgery Social History: Denies drugs alcohol. Does smoke tobacco daily. Family History: Noncontributory. ROS REVIEW OF SYSTEMS: 10 Systems were reviewed and negative with the exception of the elements mentioned in the history of present illness. Exam Constitutional appears well nontoxic no acute distress, triage nursing summary reviewed, vital signs reviewed, awake/alert. Eyes normal conjunctivae and sclera, EOMI, PERRLA. HENT normal inspection, atraumatic, moist mucus membranes, no epistaxis, neck supple/ no meningismus, no raccoon eyes. Respiratory clear to auscultation bilaterally, normal breath sounds, no respiratory distress, no wheezing. Cardiovascular rate normal, regular rhythm, no murmur, no edema, distal pulses normal. Gastrointestinal soft, non-tender, no rebound, no guarding, normal bowel sounds, no distension, no pulsatile mass. Genitourinary no CVA tenderness. Musculoskeletal no midline vertebral tenderness, full range of motion, no calf swelling, no tenderness of extremities, no meningismus, good pulses, neurovascularly intact. Skin pink, warm, & dry, no rash, skin atraumatic. Neurologic awake, alert and oriented x 3, AAOx3, moves all 4 extremities equally, motor intact, sensory intact, CN II-XII intact, normal cerebellar, normal vision, normal speech. Psychiatric normal mood/affect. Heme/Lymph/Immune no lymphadenopathy. Differential Diagnosis: Includes but is not limited to in a particular order epilepsy, breakthrough seizure, electrolyte disturbance. Anxiety. Medical Decision Making: Plan for this patient basic blood work. Observed. Re-evaluation: 0630: Patient is sleeping no acute distress resting comfortably. No seizure activity here. Vital signs stable. Blood work stable. Safe for discharge. Continue taking his Lamictal. Return if any worsening symptoms. He understands and is comfortable this plan. Source: Patient - Personal History Tetanus Vaccine Date: 09/2016 - Medical/Surgical History Hx Asthma: No Hx Chronic Respiratory Disease: No Hx Diabetes: No Hx Cardiac Disease: No Hx Renal Disease: No Hx Cirrhosis: No Hx Alcoholism: No Hx HIV/AIDS: No Hx Splenectomy or Spleen Trauma: No Other PMH: epilepsy choly - Social History Smoking Status: Current some day smoker Constitutional: Initial Vital Signs Temperature (C) 36.5 C 01/16/18 05:24 Heart Rate 73 01/16/18 05:24 Respiratory Rate 20 01/16/18 05:24 Blood Pressure 116/74 01/16/18 05:24 O2 Sat (%) 96 01/16/18 05:24 Allergies/Adverse Reactions: No Known Allergies Allergy (Verified 01/16/18 05:24) Home Medications: Medication Instructions Recorded lamoTRIgine [LamICTAL XR] 300 mg PO DAILY@0730 12/12/17 Medical Decision Making - Data Points Laboratory Results: Laboratory Results 01/16/18 05:40 01/16/18 05:40 01/16/18 01/16/18 05:40 05:40 WBC 10.83 10^3/uL H 10^3/uL (3.80-9.50) RBC 4.50 10^6/uL 10^6/uL (4.40-6.38) Hgb 14.4 g/dL g/dL (13.7-17.5) Hct 43.4 % % (40.0-51.0) MCV 96.4 fL fL (81.5-99.8) MCH 32.0 pg pg (27.9-34.1) MCHC 33.2 g/dL g/dL (32.4-36.7) RDW 13.0 % % (11.5-15.2) Plt Count 230 10^3/uL 10^3/uL (150-400) MPV 9.6 fL fL (8.7-11.7) Neut % (Auto) 57.4 % % (39.3-74.2) Lymph % (Auto) 28.3 % % (15.0-45.0) [place] % (Auto) 11.0 % % (4.5-13.0) Eos % (Auto) 2.5 % % (0.6-7.6) Baso % (Auto) 0.5 % % (0.3-1.7) Nucleat RBC Rel Count 0.0 % % (0.0-0.2) Absolute Neuts (auto) 6.22 10^3/uL 10^3/uL (1.70-6.50) Absolute Lymphs (auto) 3.07 10^3/uL H 10^3/uL (1.00-3.00) Absolute Monos (auto) 1.19 10^3/uL H 10^3/uL (0.30-0.80) Absolute Eos (auto) 0.27 10^3/uL 10^3/uL (0.03-0.40) Absolute Basos (auto) 0.05 10^3/uL 10^3/uL (0.02-0.10) Absolute Nucleated RBC 0.00 10^3/uL 10^3/uL (0-0.01) Immature Gran % 0.3 % % (0.0-1.1) Immature Gran # 0.03 10^3/uL 10^3/uL (0.00-0.10) Sodium 139 mEq/L mEq/L (135-145) Potassium 4.1 mEq/L mEq/L (3.3-5.0) Chloride 105 mEq/L mEq/L (97-110) Carbon Dioxide 24 mEq/l mEq/l (22-31) Anion Gap 10 mEq/L mEq/L (6-14) BUN 22 mg/dL mg/dL (7-23) Creatinine 1.2 mg/dL mg/dL (0.7-1.3) Estimated GFR 60 Glucose 114 mg/dL H mg/dL (70-100) Calcium 9.4 mg/dL mg/dL (8.5-10.4) Departure - Departure Disposition: Home, Routine, Self-Care Clinical Impression: Seizure disorder Condition: Good Instructions: Epilepsy (ED) Referrals: NONE *PRIMARY CARE P,. [Primary Care Provider] - As per Instructions
[2018-01-16 05:56] LABS: PLATELET COUNT 230 10^3/uL (150-400)
[2018-01-16 06:26] VITALS: BP 102/69
== END 2018-01-16 06:25 | disposition home or self-care (01) ==
DX: G40.909 Epilepsy, unspecified, not intractable, without status epilepticus (principal); Z79.899 Other long term (current) drug therapy; F17.200 Nicotine dependence, unspecified, uncomplicated

== ENCOUNTER 2018-06-19 16:48 | Emergency (ER) | payer OTHER, MEDICAID ==
--- NOTE | 2018-06-19 16:52 | EDPHY ---
H & P Source: Patient Exam Limitations: No limitations - Personal History Tetanus Vaccine Date: 09/2016 - Medical/Surgical History Hx Asthma: No Hx Chronic Respiratory Disease: No Hx Diabetes: No Hx Cardiac Disease: No Hx Renal Disease: No Hx Cirrhosis: No Hx Alcoholism: No Hx HIV/AIDS: No Hx Splenectomy or Spleen Trauma: No Other PMH: epilepsy, cholecystectomy - Social History Smoking Status: Current some day smoker Time Seen by Provider: 06/19/18 16:52 HPI/ROS: CHIEF COMPLAINT: Seizure HISTORY OF PRESENT ILLNESS: The patient is brought in by paramedics after witnessed tonic-clonic seizure. The patient reportedly was standing and Srinath been sees. He fell forward striking his head. The patient arrives to the emergency department by paramedics. He is postictal. He has had improved mentation per paramedics in route. The patient reports that he his last seizure was approximately 1 month ago. The patient does take Lamictal for seizure control. The patient does complain of mild frontal headache and facial bruising. He denies any chest pain, back pain, numbness, weakness, palpitations or additional acute complaints. REVIEW OF SYSTEMS: A comprehensive 10 point review of systems is otherwise negative aside from elements mentioned in the history of present illness. (Jong Allen) - Physical Exam Exam: General Appearance: Elderly male, postictal Head: Facial ecchymoses and contusions noted primarily over the left zygomatic arch, 2 cm laceration noted on the left cheek ENT: No intraoral trauma noted Neck: In cervical collar Respiratory: No chest wall tender, subcutaneous air, lungs clear bilaterally Cardiovascular: Regular rate and rhythm Abdomen: Abdomen is soft and nontender, pelvis stable Skin: No lacerations, No abrasion Back: No midline T/L/S pain Extremities: Nontender, full range of motion Neurological: A&Ox3, normal motor function, normal sensory exam (Jong Allen) Constitutional: Initial Vital Signs Temperature (C) 36.4 C 06/19/18 16:52 Heart Rate 100 06/19/18 16:52 Respiratory Rate 18 06/19/18 16:52 Blood Pressure 149/94 H 06/19/18 16:52 O2 Sat (%) 94 06/19/18 16:52 O2 Delivery Mode Nasal Cannula O2 (L/minute) 2 Allergies/Adverse Reactions: No Known Allergies Allergy (Verified 01/16/18 05:24) Home Medications: Medication Instructions Recorded lamoTRIgine [LamICTAL XR] 300 mg PO DAILY@0730 12/12/17 Medical Decision Making - Diagnostics Imaging Results: Imaging Impressions Cervical Spine CT 06/19/18 16:50 Impression: 1. No definite fracture. 2. Moderate cervical spondylosis, worse at C5-C6, resulting in moderate to severe central canal stenosis and moderate bilateral neural foraminal stenosis. 3. If there is persistent pain or a neurological deficit, recommend MR cervical spine and consider flexion and extension views, if clinically indicated. Findings and recommendations discussed with Emergency Department Physician, Todd Mc PA-C, at 1830 hours, on June 19, 2018. Final report concurs with initial preliminary interpretation. Head CT 06/19/18 16:50 Impression: 1. Left frontal scalp hematoma. 2. No acute hemorrhage, hydrocephalus, or mass effect. 3. Cerebrovascular atherosclerosis. 4. No definite acute infarct. 5. Mild bilateral frontal atrophy. Findings and recommendations discussed with Emergency Department physician, Maria Ines Mc PA-C at 1827 hour, 06/19/2018. Final report concurs with initial preliminary interpretation. Procedures: Procedure: Laceration repair. I was requested by Dr. Allen to perform wound closure I explained the indications, risks and benefits for both laceration repair and anesthetic administration. Verbal consent was obtained from the patient . The laceration on the left cheek was anesthetized using 0.5% bupivicaine with epinephrine . After anesthetic administered the patient was observed for a period of time and had no apparent adverse effects. The wound was cleaned, prepped, draped in normal sterile fashion and explored to its base. No foreign body seen, no foreign bodies palpated. There were no deep structures involved. The wound was repaired with 5 simple interrupted 6 0 Prolene sutures. The wound repair was simple. The procedure was performed by myself. Patient has been informed that scarring will occur, although efforts have been made to minimize this. (Susan Mc) ED Course/Re-evaluation: The patient presents to the ED after witnessed seizure. The patient has a facial laceration and facial contusions. He was postictal upon arrival. The patient was taken for noncontrast CT scan of the head and cervical spine which were negative. The patient tells me he may have missed a recent dose of Lamictal after some time in the department. I have sent a Lamictal level. The patient will schedule a follow-up appointment with his neurologist at the [facility] [place] and have that level checked. Patient did have a facial laceration which was repaired by the physician learning and development assistant under my supervision. He will return to the ED in 5 days for suture removal. The patient did undergo serial neurologic examinations in the ED without recurrent seizure. His postictal state has entirely resolved. At 7:00 p.m. in the evening he is alert and oriented x4 with a normal neurologic exam. 7:15 p.m.: The patient is ambulatory and would like to be discharged from the emergency department. (Jong Allen) Differential Diagnosis: Differential diagnosis considered includes seizure, status epilepticus, intracranial hemorrhage, skull fracture, cervical spine fracture, subtherapeutic anticonvulsant (Jong Allen) - Data Points Laboratory Results: Laboratory Results 06/19/18 16:57 06/19/18 16:57 06/19/18 06/19/18 06/19/18 16:57 16:57 16:57 WBC 13.20 10^3/uL H 10^3/uL (3.80-9.50) RBC 5.09 10^6/uL 10^6/uL (4.40-6.38) Hgb 17.0 g/dL g/dL (13.7-17.5) POC Hgb 18.4 gm/dL H gm/dL (13.7-17.5) Hct 51.8 % H % (40.0-51.0) POC Hct 54 % H % (40-51) MCV 101.8 fL H fL (81.5-99.8) MCH 33.4 pg pg (27.9-34.1) MCHC 32.8 g/dL g/dL (32.4-36.7) RDW 12.8 % % (11.5-15.2) Plt Count 290 10^3/uL 10^3/uL (150-400) MPV 10.1 fL fL (8.7-11.7) Neut % (Auto) 37.9 % L % (39.3-74.2) Lymph % (Auto) 49.4 % H % (15.0-45.0) [place] % (Auto) 9.6 % % (4.5-13.0) Eos % (Auto) 2.2 % % (0.6-7.6) Baso % (Auto) 0.5 % % (0.3-1.7) Nucleat RBC Rel Count 0.0 % % (0.0-0.2) Absolute Neuts (auto) 5.00 10^3/uL 10^3/uL (1.70-6.50) Absolute Lymphs (auto) 6.52 10^3/uL H 10^3/uL (1.00-3.00) Absolute Monos (auto) 1.27 10^3/uL H 10^3/uL (0.30-0.80) Absolute Eos (auto) 0.29 10^3/uL 10^3/uL (0.03-0.40) Absolute Basos (auto) 0.07 10^3/uL 10^3/uL (0.02-0.10) Absolute Nucleated RBC 0.00 10^3/uL 10^3/uL (0-0.01) Immature Gran % 0.4 % % (0.0-1.1) Immature Gran # 0.05 10^3/uL 10^3/uL (0.00-0.10) RBC/WBC/PLT Morphology TNP Platelet Estimate TNP POC Sodium 143 mEq/L mEq/L (135-145) Sodium 141 mEq/L mEq/L (135-145) POC Potassium 3.7 mEq/L mEq/L (3.3-5.0) Potassium 4.0 mEq/L mEq/L (3.5-5.2) POC Chloride 106 mEq/L mEq/L (97-110) Chloride 104 mEq/L mEq/L (97-110) Carbon Dioxide 14 mEq/l L mEq/l (22-31) POC Total CO2 17 mEq/L L mEq/L (22-31) Anion Gap 23 mEq/L H mEq/L (6-14) POC BUN 19 mg/dL mg/dL (7-23) BUN 17 mg/dL mg/dL (7-23) Creatinine 1.2 mg/dL mg/dL (0.7-1.3) POC Creatinine 1.1 mg/dL mg/dL (0.7-1.3) Estimated GFR 60 Glucose 154 mg/dL H mg/dL (70-100) POC Glucose 149 mg/dL H mg/dL (70-100) Calcium 9.9 mg/dL mg/dL (8.5-10.4) Phenytoin < 3.0 mcg/mL L mcg/mL (10.0-20.0) Medications Given: Discontinued Medications Tetracaine/Epinephrine/Lidocaine (Let Gel Topical) 1 ea TP EDNOW ONE Stop: 06/19/18 17:33 Last Admin: 06/19/18 17:51 Dose: 1 ea Point of Care Test Results: Chemistry 06/19/18 16:57 POC Sodium 143 mEq/L mEq/L (135-145) POC Potassium 3.7 mEq/L mEq/L (3.3-5.0) POC Chloride 106 mEq/L mEq/L (97-110) POC Total CO2 17 mEq/L L mEq/L (22-31) POC BUN 19 mg/dL mg/dL (7-23) POC Creatinine 1.1 mg/dL mg/dL (0.7-1.3) POC Glucose 149 mg/dL H mg/dL (70-100) ISTAT H&H 06/19/18 16:57 POC Hgb 18.4 gm/dL H gm/dL (13.7-17.5) POC Hct 54 % H % (40-51) Departure - Departure Disposition: Home, Routine, Self-Care Clinical Impression: Seizure disorder, Facial laceration Condition: Good Instructions: Laceration (ED), Epilepsy (ED) Additional Instructions: 1. Please return to the ED in 5 days for suture removal. 2. Please follow-up with your neurologist for a visit within the next week. I have sent a Lamictal level to check the level of your seizure medications. Please review this with your neurologist to see if your medication needs to be increased. 3. Return to the ED for any severe headache, recurrent seizure or acute concerns. Referrals: AUSTEN ASHLEY [Non Staff Provider (MD)] - As per Instructions
[2018-06-19 17:04] LABS: PLATELET COUNT 290 10^3/uL (150-400)
[2018-06-19] MEDS ORDERED: LET GEL TOPICAL 1 EA SYR TP ONE (17:32)
[2018-06-25 12:02] VITALS: BP 117/75
== END 2018-06-19 19:24 | disposition home or self-care (01) ==
LOC: EDUNIT#
PROC: 0HQ1XZZ Repair Face Skin, External Approach (ICD-10-PCS; principal; 2018-06-19)
DX: S01.412A Laceration without foreign body of left cheek and temporomandibular area, initial encounter (principal); G40.909 Epilepsy, unspecified, not intractable, without status epilepticus; W19.XXXA Unspecified fall, initial encounter; Z79.899 Other long term (current) drug therapy
CPT/HCPCS: 80175-90; 82435-PO; 82565-PO; 82947-PO; 84132-PO; 84295-PO; 84520-PO; 85014-ER

== ENCOUNTER 2018-07-15 12:42 | Emergency (ER) | payer OTHER, MEDICAID ==
[2018-07-15 12:48] VITALS: BP 123/83
--- NOTE | 2018-07-15 13:03 | EDPHY ---
H & P Time Seen by Provider: 07/15/18 12:53 HPI/ROS: CHIEF COMPLAINT: Dental pain HISTORY OF PRESENT ILLNESS: Patient says he broke a right posterior molar when he had a seizure on 06/19/2018. Stated cracked tooth and over the last 48 hr has had worsening right lower jaw pain. Worse with hot and cold. Does not radiate. Not associated with difficulty breathing or swallowing or fever or chills. REVIEW OF SYSTEMS: No ear symptoms or throat symptoms PAST MEDICAL HISTORY: Includes seizure disorder and cholecystectomy Social history: Smoker General Appearance: Alert and conversant, cooperative. Normal tympanic membranes. No external facial swelling, no trismus. Normal pharynx without erythema or exudate. Fractured right 2nd posterior molar which is tender to palpation with some surrounding gum swelling but no abscess. Normal voice and no stridor or drooling, normal respiratory effort. Normal range of motion of the neck. Emergency Department course/MDM: Likely dental infection after fractured tooth, does not have systemic signs or symptoms or airway involvement. Clinically does not have evidence of abscess. Oral pain medication, amoxicillin, dental aid referral. Dental aid called and discussed with [facility] at 1308. Smoking Status: Heavy smoker Constitutional: Initial Vital Signs Temperature (C) 36.9 C 07/15/18 12:46 Heart Rate 78 07/15/18 12:46 Respiratory Rate 18 07/15/18 12:46 Blood Pressure 123/83 H 07/15/18 12:46 O2 Sat (%) 93 07/15/18 12:46 O2 Delivery Mode Room Air Allergies/Adverse Reactions: No Known Allergies Allergy (Verified 07/15/18 12:48) Home Medications: Medication Instructions Recorded lamoTRIgine [LamICTAL XR] 300 mg PO DAILY@0730 12/12/17 Hydrocodone/APAP 5/325 [[place] 1 - 2 each PO Q6 PRN #20 tab 06/19/18 5/325] Amoxicillin Trihydrate 500 mg PO Q8 #30 cap 07/15/18 [Amoxicillin 500mg capsule] oxyCODONE/APAP 5/325 [Percocet] 1 tab PO Q4-6PRN PRN #7 tab 07/15/18 MDM/Departure - Depart Disposition: Home, Routine, Self-Care Clinical Impression: Toothache Condition: Good Instructions: Toothache (ED) Prescriptions: Amoxicillin Trihydrate [Amoxicillin 500mg capsule] 500 mg PO Q8 #30 cap oxyCODONE/APAP 5/325 [Percocet] 1 tab PO Q4-6PRN PRN #7 tab PRN Reason: Pain Referrals: Kimberley Simmons MD [Primary Care Provider] - As per Instructions Dental Aid [Outside] - 1-2 days without fail
== END 2018-07-15 13:19 | disposition home or self-care (01) ==
DX: K08.89 Other specified disorders of teeth and supporting structures (principal)

== ENCOUNTER 2018-07-15 15:05 | Emergency (ER) | payer OTHER, MEDICAID ==
[2018-07-15] MEDS ORDERED: OXYCODONE/APAP 5/325 TAB PO ONE (16:37)
--- NOTE | 2018-07-15 16:39 | EDPHY ---
H & P Time Seen by Provider: 07/15/18 16:16 HPI/ROS: Chief complaint. Dental pain HPI. Patient seen earlier today for broken right tooth. Has had increased pain over the last 48 hr. Hot and cold sensitivity. The patient earlier was prescribed amoxicillin an oxycodone tab 7 and phone call was placed dental aid who will see the patient tomorrow. Apparently the patient left without getting up oxycodone pill as there was some confusion at discharge. He returns with requesting and oxycodone pill. No other complaints ROS 10 systems were reviewed and negative with the exception of the elements mentioned in the history of present illness Smoking Status: Heavy smoker Physical Exam: Exam shows broken right 2nd posterior molar Constitutional: Initial Vital Signs Temperature (C) 36.9 C 07/15/18 15:07 Heart Rate 69 07/15/18 15:07 Respiratory Rate 18 07/15/18 15:07 Blood Pressure 121/78 H 07/15/18 15:07 O2 Sat (%) 97 07/15/18 15:07 O2 Delivery Mode Room Air Allergies/Adverse Reactions: No Known Allergies Allergy (Verified 07/15/18 15:09) Home Medications: Medication Instructions Recorded lamoTRIgine [LamICTAL XR] 300 mg PO DAILY@0730 12/12/17 Hydrocodone/APAP 5/325 [[place] 1 - 2 each PO Q6 PRN #20 tab 06/19/18 5/325] Amoxicillin Trihydrate 500 mg PO Q8 #30 cap 07/15/18 [Amoxicillin 500mg capsule] oxyCODONE/APAP 5/325 [Percocet] 1 tab PO Q4-6PRN PRN #7 tab 07/15/18 Medical Decision Making ED Course/Re-evaluation: Oxycodone pill We discussed treatment plan including criteria for return importance of follow- up and seeing dental aid tomorrow. He expresses understanding and agreement Departure - Departure Disposition: Home, Routine, Self-Care Clinical Impression: Toothache Condition: Good Instructions: Toothache (ED) Additional Instructions: Keep your follow-up appointment with dental aid Referrals: NONE *PRIMARY CARE P,. [Primary Care Provider] - As per Instructions Dental Aid [Outside] - 1 day without fail
[2018-07-15 16:43] VITALS: BP 110/65
== END 2018-07-15 16:49 | disposition home or self-care (01) ==
DX: K08.89 Other specified disorders of teeth and supporting structures (principal)